=== PATIENT | male | born 1980 | race Two or more races ===

== ENCOUNTER 2024-01-15 14:36 | Emergency (ER) | payer OTHER ==
[~2024-01-15] VITALS: Ht 160 cm; Wt 77.1 kg
[2024-01-15] MEDS ORDERED: ENALAPRILAT DIHYDRATE 1.25 MG/ML VIAL IV ONE (16:15)
[2024-01-15 16:45] LABS: HEMATOCRIT 44.9 % (39.0-48.0); HEMOGLOBIN 14.6 g/dL (13-16.00); MEAN CELL VOLUME 82.2 fL (80.0-100.00); MEAN CORPUSCULAR HEMOGLOBIN 26.7 pg (27.00-32.0); MEAN CORPUSCULAR HGB CONC 32.4 g/dl (32.0-36.0); PLATELET COUNT 178 K/uL (150-450); RED BLOOD COUNT 5.46 M/uL (4.00-6.00); RED CELL DISTRIBUTION WIDTH 14.6 % (11.5-14.5)
[2024-01-15 17:07] LABS: INR 1.06; PARTIAL THROMBOPLASTIN TIME 28.2 SECONDS (22.0-34.0); PROTHROMBIN TIME 11.5 SECONDS (9.0-11.5)
[2024-01-15 17:12] LABS: ALBUMIN 5.1 gm/dL (3.4-5.0); BILIRUBIN TOTAL 0.61 mg/dL (0.3-1.2); CALCIUM 9.7 mg/dL (8.5-10.1); CREATININE SERUM 0.96 mg/dL (0.70-1.30); GFR 85.9; GLOBULINA 3.7 G/DL (2.4-3.5); POTASSIUM 3.7 mEq/L (3.5-5.1); TOTAL PROTEIN 8.8 gm/dL (6.4-8.2)
[2024-01-15] MEDS ORDERED: COZAAR50 MG PO (18:48)
== END 2024-01-15 19:23 | disposition home or self-care (01) ==
LOC: ER 14:38
PROVIDERS: Nurse Practitioner Family
DX: R07.89 Other chest pain (principal); I10 Essential (primary) hypertension; E78.00 Pure hypercholesterolemia, unspecified